=== PATIENT | male | born 1970 | race Caucasian/White ===

== ENCOUNTER 2019-07-30 19:38 | Emergency (ER) | payer SELFPAY ==
[2019-07-30] MEDS ORDERED: fentaNYL 100 MCG/2 ML INJ IV ONE (20:15)
[2019-07-30] MEDS ORDERED: ONDANSETRON 4 MG/2 ML INJ IV ONE (20:15)
[2019-07-30] MEDS ORDERED: SODIUM CHLORIDE 0.9% 500 ML 500 ML IV ONE (20:15)
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
[2019-07-30 20:33] LABS: Hematocrit 36.6 % (35.5-45.6); Hemoglobin 12.6 gm/dl (11.8-15.2); Mean Corpuscular HGB Conc 35 % (32-34); Mean Corpuscular Volume 98 fl (84-94); Platelet Count 264 K/mm3 (140-440); Red Blood Count 3.74 M/mm3 (3.65-5.03); Red Cell Distribution Width 12.5 % (13.2-15.2)
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
[2019-07-30 20:49] LABS: INR 1.13 (0.87-1.13)
[2019-07-30 21:10] LABS: Alanine Aminotransferase 26 units/L (7-56); Albumin 4.1 g/dL (3.9-5); BUN/Creatinine Ratio 21; Blood Urea Nitrogen 21 mg/dL (9-20); Calcium 9.2 mg/dL (8.4-10.2); Hemolysis Index 5
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
[2019-07-31 01:55] VITALS: BP 117/81
== END 2019-07-31 01:55 | disposition home or self-care (01) ==
LOC: ED 19:38
DX: S81.801A Unspecified open wound, right lower leg, initial encounter (principal); F10.129 Alcohol abuse with intoxication, unspecified; R07.9 Chest pain, unspecified; R10.13 Epigastric pain; R51 Headache; X58.XXXA Exposure to other specified factors, initial encounter; Y93.89 Activity, other specified; Y92.89 Other specified places as the place of occurrence of the external cause; Y99.8 Other external cause status
CPT/HCPCS: 36415; 70450; 71045; 71275; 72125; 74177; 80053; 82550; 83690; 83735; 84484; 85027; 85610; 93005; 93010; 96374; 96375; 99285; J2405; J3010; J7040; Q9967; 80320; G0480